=== PATIENT | male | born 1990 | race Caucasian/White ===

== ENCOUNTER 2017-10-12 22:40 | Emergency (ER) | payer OTHER ==
[~2017-10-12] VITALS: Ht 182.9 cm; Wt 88.5 kg
[~2017-10-12 22:40] MED LIST: ACETAMINOPHEN-1 EAC1 PO; AMOXICILLIN500 M1 PO; CIPRO500 MG PO; HYDROCODONE-AP1 EAC6 PO; IBUPROFEN 800800 M1 PO; IBUPROFEN 800800 MG PO; KEFLEX500 MG PO; NORCO 5-325 TA1 EACH PO; ONDANSETRON HCL4 M2 PO; PERCOCET 5-3251 EACH PO; TRAMADOL 50 MG50 MG PO
[2017-10-13] MEDS ORDERED: NAPROSYN500 MG PO
[2017-10-13 00:11] VITALS: BP 122/64
== END 2017-10-13 00:12 | disposition home or self-care (01) ==
LOC: M.ERS 22:40
DX: S62.366A Nondisplaced fracture of neck of fifth metacarpal bone, right hand, initial encounter for closed fracture (principal); W22.01XA Walked into wall, initial encounter; Y93.89 Activity, other specified; Y92.89 Other specified places as the place of occurrence of the external cause; Y99.8 Other external cause status

== ENCOUNTER 2017-11-19 12:56 | Emergency (ER) | payer OTHER ==
[~2017-11-19] VITALS: Ht 182.9 cm; Wt 81.7 kg
[~2017-11-19 12:56] MED LIST changes: +NAPROSYN500 MG PO
[2017-11-19 14:02] VITALS: BP 126/88
== END 2017-11-19 14:03 | disposition home or self-care (01) ==
LOC: M.ERS 12:56
DX: S60.811A Abrasion of right wrist, initial encounter (principal); S20.412A Abrasion of left back wall of thorax, initial encounter; X99.1XXA Assault by knife, initial encounter; Y93.89 Activity, other specified; Y92.89 Other specified places as the place of occurrence of the external cause; Y99.8 Other external cause status